=== PATIENT | female | born 1965 | race Caucasian/White ===

== ENCOUNTER 2024-03-06 08:53 | Outpatient (CLI) | payer OTHER, SELFPAY ==
--- NOTE | 2024-03-06 09:00 | MM_ITS ---
WS: [id number] SCREENING DIGITAL BREAST TOMOSYNTHESIS MAMMOGRAM WITH CAD HISTORY: SCREENING COMPARISON: 09/13/2022 Bilateral CC and MLO with tomosynthesis and synthetic mammography submitted. Computer aided detection analyzed. Breast composition: There are scattered areas of fibroglandular density. High density ovoid mass uppe r outer quadrant RIGHT breast at a mid depth measures 1.7 x 1.0 x 1.6 cm. This is new since the prior study from 09/13/2022. No additional suspicious calcifications or mass. No distortion. MM/MM [facility] tomosynthesis [id number] IMPRESSION: BI-RADS: 0 - Incomplete: Need additional imaging evaluation. FOLLOW UP: Need Additional Imaging Recommendation: RIGHT breast ultrasound, limited upper outer quadrant RIGHT oumou ast. Focus on 11-12 o'clock.
== END 2024-03-06 08:54 | disposition home or self-care (01) ==
PROVIDERS: PCP Nurse Practitioner Family; Visit Provider Nurse Practitioner Family
DX: Z12.31 Encounter for screening mammogram for malignant neoplasm of breast (principal); R92.323 Mammographic fibroglandular density, bilateral breasts; N63.11 Unspecified lump in the right breast, upper outer quadrant
CPT/HCPCS: 77063; 77067

== ENCOUNTER 2024-03-25 13:24 | Outpatient (CLI) | payer OTHER, SELFPAY ==
--- NOTE | 2024-03-25 13:31 | US_ITS ---
WS: [id number] ULTRASOUND RIGHT BREAST HISTORY: ABNORMAL MAMMO COMPARISON: 03/06/2024, 09/13/2022 TECHNIQUE: 2-D and Doppler. Ultrasound of the RIGHT upper outer quadrant demonstrates an ovoid cyst with through transmission perry suring 1.5 x 1.3 x 0.9 cm. This corresponds to the mammographic abnormality. There is no shadowing or solid mass identified. US/US breast RT limited* [id number] IMPRESSION: BI-RADS: 2- Benign FOLLOW-UP: 1 Year Follow-up Return to annual screening mammography.
== END 2024-03-25 13:25 | disposition home or self-care (01) ==
PROVIDERS: PCP Nurse Practitioner Family; Visit Provider Nurse Practitioner Family
DX: N60.01 Solitary cyst of right breast (principal)
CPT/HCPCS: 76642